=== PATIENT | female | born 1995 | race African-American/Black ===

== ENCOUNTER 2020-12-27 14:11 | Emergency (ER) | payer SELFPAY ==
[~2020-12-27] VITALS: Ht 165.1 cm; Wt 80.0 kg
[2020-12-27] MEDS ORDERED: FLUORESCEIN SODIUM 1MG/STRIP LEFTEYE ONE (16:45)
[2020-12-27] MEDS ORDERED: TETRACAINE 0.5% OPHTH DROPS 4ML LEFTEYE ONE (16:45)
[2020-12-27 17:30] VITALS: BP 158/88
== END 2020-12-27 17:33 | disposition home or self-care (01) ==
LOC: ER 14:11
DX: S00.12XA Contusion of left eyelid and periocular area, initial encounter (principal); W22.8XXA Striking against or struck by other objects, initial encounter; Y93.89 Activity, other specified; Y92.010 Kitchen of single-family (private) house as the place of occurrence of the external cause
CPT/HCPCS: 99281

== ENCOUNTER 2021-12-31 18:42 | Emergency (ER) | payer MEDICAID, OTHER ==
[~2021-12-31] VITALS: Ht 167.6 cm; Wt 78.0 kg
[2021-12-31 18:47] VITALS: BP 133/79
== END 2022-01-01 05:00 | disposition left against medical advice (07) ==
LOC: ER 18:42
DX: Z53.21 Procedure and treatment not carried out due to patient leaving prior to being seen by health care provider (principal)

== ENCOUNTER 2022-03-15 11:19 | Emergency (ER) | payer MEDICAID ==
[~2022-03-15] VITALS: Ht 160 cm; Wt 84.0 kg
[2022-03-15 11:56] VITALS: BP 114/77
[2022-03-15 15:28] LABS: BASOPHILS % 0.3 % (0.0-2.0); HEMATOCRIT. 39.3 % (36.0-48.0); HEMOGLOBIN. 13.2 g/dL (12.0-16.0); LYMPHOCYTES % 18.5 % (20.0-50.0); MEAN CORPUSCULAR HEMOGLOBIN 29.2 pg (28.0-32.0); MEAN CORPUSCULAR VOLUME 87.3 fL (81.0-99.0); MEAN PLATELET VOLUME 8.4 fl (7.4-10.4); MONOCYTES % 5.3 % (2.0-8.0); NEUTROPHILS % 74.9 % (40.0-76.0); PLATELET 263 x1000/uL (130-400); RED CELL DISTRIBUTION WIDTH 13.5 % (11.6-14.6)
[2022-03-15 15:34] LABS: CHLORIDE 103 mEq/L (98-107)
[2022-03-15 16:32] LABS: CLARITY URINE TURBID (CLEAR); COLOR URINE DARK YELLOW (YELLOW); KETONES URINE 1+ (NEGATIVE); LEUKOCYTE ESTERASE URINE 2+ (NEGATIVE); NITRITE URINE NEGATIVE (NEGATIVE); OCCULT BLOOD URINE TRACE (NEGATIVE); PH URINE 5.5 (4.5-8.0); PROTEIN URINE 1+ (NEGATIVE); SPECIFIC GRAVITY URINE 1.024 (1.005-1.030)
[2022-03-15] MEDS ORDERED: LORA10TA64 PO (17:35)
[2022-03-15] MEDS ORDERED: ACET-2708 PO (17:35)
[2022-03-15] MEDS ORDERED: CEPH500T PO (17:35)
== END 2022-03-15 20:22 | disposition left against medical advice (07) ==
LOC: ER 11:19
DX: O99.512 Diseases of the respiratory system complicating pregnancy, second trimester (principal); O26.892 Other specified pregnancy related conditions, second trimester; J06.9 Acute upper respiratory infection, unspecified; O23.42 Unspecified infection of urinary tract in pregnancy, second trimester; N39.0 Urinary tract infection, site not specified; Z3A.15 15 weeks gestation of pregnancy; Z20.822 Contact with and (suspected) exposure to COVID-19
CPT/HCPCS: 36415; 80053; 81003; 81025; 83690; 85025; 87426; 99283; C9803